=== PATIENT | male | born 1940 | race Caucasian/White ===

== ENCOUNTER 2024-03-09 07:01 | Outpatient (CLI) | payer MEDICARE | END 2024-03-09 07:02 | disposition home or self-care (01) | LOC: CT 07:01 | PROVIDERS: ATTEND Radiology Radiation Oncology | DX: C15.5 Malignant neoplasm of lower third of esophagus (principal); R91.8 Other nonspecific abnormal finding of lung field; K22.89 Other specified disease of esophagus | CPT/HCPCS: 71260; 74160 ==

== ENCOUNTER 2024-03-17 10:10 | Emergency (ER) | payer MEDICARE ==
[2024-03-17 12:22] LABS: #Basophils Less than 0.03 10x3/uL (0.0-0.2); %Basophils 0.1 % (0.0-1.0); %Eosinophils 0.7 % (0.0-10.0); %Lymphocytes 4.9 % (21.0-51.0); %Neutrophils 85.9 % (42.0-75.0); Hemoglobin 13.3 g/dL (14.0-18.0); Mean Corpuscular HGB CONC 31.7 g/dL (32.0-36.0); Mean Corpuscular Hemoglobin 29.8 pg (27.0-31.0); Mean Platelet Volume 10.4 fL (7.4-10.4); Platelet Count 174 10x3/uL (130-400); RBC Distribution Width 13.7 % (11.5-14.5); Red Blood Cell (RBC) Count 4.47 mill/uL (4.70-6.10)
[2024-03-17 12:34] LABS: Prothrombin Time 13.3 sec (12.0-14.7)
[2024-03-17 12:45] LABS: ALT (SGPT) 7 U/L (Less than 45); AST (SGOT) 14 U/L (11-34); Albumin 3.5 g/dL (3.1-4.5); Alkaline Phosphatase 56 U/L (40-110); Anion Gap 13 mmol/L (10-20); BUN (Urea Nitrogen) 30 mg/dL (8.4-25.7); Bilirubin, Total 0.4 mg/dL (0.3-1.2); Calc. Creatinine Clearance 0 mL/min (70-130); Calcium 8.9 mg/dL (7.8-10.44); Carbon Dioxide 26 mmol/L (23-31); Chloride 107 mmol/L (98-107); Estimated GFR 69; Glucose 109 mg/dL (83-110); Protein, Total 6.5 g/dL (5.8-8.1); Sodium 142 mmol/L (136-145)
[2024-03-17 12:48] LABS: Troponin I Less than 0.010 ng/mL (< 0.028)
[2024-03-17] MEDS ORDERED: Ondansetron PF 4 MG/2 ML Vial ONE (13:42)
== END 2024-03-17 15:53 | disposition home or self-care (01) ==
LOC: ERS 10:10
DX: C15.9 Malignant neoplasm of esophagus, unspecified (principal); K92.0 Hematemesis; I10 Essential (primary) hypertension; E78.00 Pure hypercholesterolemia, unspecified; Z95.5 Presence of coronary angioplasty implant and graft; Z95.0 Presence of cardiac pacemaker; Z87.891 Personal history of nicotine dependence; Z79.899 Other long term (current) drug therapy
CPT/HCPCS: 71045; 80053; 84484; 85025; 85610; 86850; 86900; 86901; 93005; 96374; 99285; J2405; 36415; 82274

== ENCOUNTER 2024-03-22 11:45 | Outpatient (CLI) | payer MEDICARE | END 2024-03-22 11:46 | disposition home or self-care (01) | LOC: PET 11:45 | PROVIDERS: ATTEND Radiology Radiation Oncology | DX: C15.9 Malignant neoplasm of esophagus, unspecified (principal); C77.2 Secondary and unspecified malignant neoplasm of intra-abdominal lymph nodes; C79.89 Secondary malignant neoplasm of other specified sites | CPT/HCPCS: 78815; A9552 ==

== ENCOUNTER 2024-06-15 09:30 | Outpatient (CLI) | payer MEDICARE, OTHER | END 2024-06-15 09:31 | disposition home or self-care (01) | LOC: PET 09:30 | PROVIDERS: ATTEND Internal Medicine Hematology & Oncology | DX: C15.4 Malignant neoplasm of middle third of esophagus (principal); R91.8 Other nonspecific abnormal finding of lung field | CPT/HCPCS: 78815; A9552 ==

== ENCOUNTER 2024-12-12 08:45 | Outpatient (CLI) | payer OTHER | END 2024-12-12 08:46 | disposition home or self-care (01) | LOC: PET 08:45 | PROVIDERS: ATTEND Internal Medicine Hematology & Oncology | DX: C15.4 Malignant neoplasm of middle third of esophagus (principal); R91.1 Solitary pulmonary nodule | CPT/HCPCS: 78815; A9552 ==